=== PATIENT | female | born 1995 | race Caucasian/White ===

== ENCOUNTER 2019-04-12 21:45 | Emergency (ER) | payer MEDICAID ==
[~2019-04-12] VITALS: Ht 165.1 cm; Wt 81.3 kg
[2019-04-12 21:48] VITALS: BP 115/81
--- NOTE | 2019-04-12 21:53 | NUR ---
PROVIDER AT BEDSIDE TO EVAL.
[2019-04-12] MEDS ORDERED: ACETAMINOPHEN 500 MG TABLET PO ONE (22:00)
--- NOTE | 2019-04-12 22:01 | NUR ---
XRAY AT BEDSIDE
[2019-04-12] MEDS ORDERED: ACETAMINOPHEN 500 MG TABLET ONE (22:05)
--- NOTE | 2019-04-12 22:13 | NUR ---
PT MEDICATED PER JUL. ICE PACK PLACED AND LLE ELEVATED. CALL LIGHT IN REACH.
== END 2019-04-12 22:46 | disposition home or self-care (01) ==
LOC: ED 22:30
DX: G89.11 Acute pain due to trauma (principal); M25.572 Pain in left ankle and joints of left foot; W18.30XA Fall on same level, unspecified, initial encounter; Y93.89 Activity, other specified; Y92.009 Unspecified place in unspecified non-institutional (private) residence as the place of occurrence of the external cause; Y99.8 Other external cause status
CPT/HCPCS: 99283

== ENCOUNTER 2019-07-15 20:39 | Emergency (ER) | payer SELFPAY ==
[~2019-07-15] VITALS: Ht 162.6 cm; Wt 90.1 kg
[2019-07-15] MEDS ORDERED: ONDANSETRON 2MG/ML, 2ML IVPush ONE (21:30)
[2019-07-15] MEDS ORDERED: MORPHINE SULFATE 4 MG/ML, 1ML ONE (21:30)
[2019-07-15] MEDS ORDERED: SODIUM CHLORIDE FLUSH 10ML SYR IVF ONE (21:30)
[2019-07-15] MEDS ORDERED: ONDANSETRON 2MG/ML, 2ML ONE (21:30)
[2019-07-15] MEDS: MORPHINE SULFATE 4 MG/ML, 1ML IVPush PRN (21:44)
[2019-07-15 21:49] LABS: CULTURE INDICATED? YES; MICROSCOPIC INDICATED
[2019-07-15 22:48] LABS: BASOPHILS # (AUTO) 0.02 x10^3/uL (0-0.1); BASOPHILS % (AUTO) 0 % (0-1); EOSINOPHILS # (AUTO) 0.05 x10^3/uL (0-0.4); EOSINOPHILS % (AUTO) 1 % (1-7); LYMPHOCYTES # (AUTO) 2.65 x10^3/uL (1-3.4); LYMPHOCYTES % (AUTO) 31 % (22-44); MD NO; MEAN CORPUSCULAR HEMOGLOBIN 28.7 pg (27.0-34.8); MEAN CORPUSCULAR HGB CONC 32.9 g/dL (32.4-35.8); MEAN CORPUSCULAR VOLUME 87.3 fL (80-100); MEAN PLATELET VOLUME 8.8 fL (7.4-10.4); MONOCYTES # (AUTO) 0.57 x10^3/uL (0.2-0.8); MONOCYTES % (AUTO) 7 % (2-9); NEUTROPHILS # (AUTO) 5.21 x10^3/uL (1.8-6.8); NEUTROPHILS % (AUTO) 61 % (42-75); PLATELET COUNT 254 x10^3/uL (130-400); RED BLOOD COUNT 4.61 x10^6/uL (3.82-5.3); RED CELL DISTRIBUTION WIDTH 14.1 % (9.6-15.2)
[2019-07-15 23:01] LABS: ALANINE AMINOTRANSFERASE 27 U/L (12-78); ALBUMIN 3.6 g/dL (3.4-5.0); ANION GAP 7 mmol/L (5-15); CALCIUM 8.5 mg/dL (8.5-10.1); CHLORIDE 108 mmol/L (98-107)
[2019-07-15 23:07] LABS: ALKALINE PHOSPHATASE 157 U/L (45-117); BILIRUBIN,TOTAL 0.5 mg/dL (0.2-1.0); CREATININE 1.01 mg/dL (0.55-1.02); TOTAL PROTEIN 7.7 g/dL (6.4-8.2)
[2019-07-16] MEDS ORDERED: MORPHINE SULFATE 4 MG/ML, 1ML ONE (00:32)
[2019-07-16 00:37] VITALS: BP 124/78
[2019-07-16] MEDS: MORPHINE SULFATE 4 MG/ML, 1ML IVPush PRN (00:38)
[2019-07-16 01:05] LABS: MICROSCOPIC INDICATED
[2019-07-16 01:06] LABS: CULTURE INDICATED? YES
[2019-07-16] MEDS ORDERED: CIPROFLOXACIN 500 MG TABLET PO ONE (02:00)
[2019-07-16] MEDS ORDERED: TAMSULOSIN 0.4 MG CAP.ER.24H PO ONE (02:00)
[2019-07-16] MEDS ORDERED: KETOROLAC 30 MG/1 ML IVPush ONE (02:00)
[2019-07-16] MEDS ORDERED: KETOROLAC 30 MG/1 ML ONE (02:18)
[2019-07-16] MEDS ORDERED: TAMSULOSIN 0.4 MG CAP.ER.24H ONE (02:18)
[2019-07-16] MEDS ORDERED: CIPROFLOXACIN 500 MG TABLET ONE (02:18)
== END 2019-07-16 02:39 | disposition home or self-care (01) ==
LOC: ED 07-16 00:09
DX: N13.2 Hydronephrosis with renal and ureteral calculous obstruction (principal)
CPT/HCPCS: 36415; 74176; 80053; 81001; 83690; 84703; 85025; 87086; 96374; 96375; 96376; 99284; J2270; J2405